=== PATIENT | female | born 1970 ===

== ENCOUNTER 2018-05-26 05:47 | Day surgery (SDC) | payer OTHER ==
[2018-05-25 10:19] VITALS: BMI 45.1
[2018-05-26] MEDS ORDERED: Lactated Ringer's 1,000 ML IV ONE (07:00)
[2018-05-26] MEDS ORDERED: Propofol 10 mg/ml Inj (20 ML) ONE (07:21)
[2018-05-26] MEDS ORDERED: ePHEDrine 50 mg/ml Inj ONE (07:21)
[2018-05-26] MEDS ORDERED: Phenylephrine 10 mg/ml Inj ONE (07:22)
[2018-05-26] MEDS ORDERED: Succinylcholine 200 mg/10 ml Inj IV ONE (07:22)
[2018-05-26] MEDS ORDERED: Midazolam 2 MG/2 ML VIAL ONE (07:22)
--- NOTE | 2018-05-26 07:38 | CP.SDSHP ---
Same Day Surgery H & P - History Proposed Procedure: DIALATATION AND CURETTAGE Pre-Op Diagnosis: POSTMENOPAUSAL BLEEDING - Allergies Allergies: Allergies latex Allergy (Verified 05/26/18 06:46) SWELLING Penicillins Allergy (Verified 05/26/18 06:46) RASH Tetanus Vaccines and Toxoid Allergy (Verified 05/26/18 06:46) RASH - Physical Exam General Appearance: NAD Vital Signs: Vital Signs 05/26/18 06:40 Pulse Rate 88 Mental Status: Alert & Oriented x3 Neuro: WNL Heart: WNL Lungs: WNL GI: WNL - {Optional Preform as Required} Breast: WNL Abdomen: Other Rectal: WNL Integument: WNL PIPE SMOKER MACHINE OPERATOR: WNL Ortho: WNL ENT: WNL Other Pertinent Findings: obese - Impression Impression: postmenopausal bleeding - Date & Time Date: 05/26/18 Time: 07:38 Short Stay Discharge - Short Stay Discharge Admitting Diagnosis/Reason for Visit: POST MENOPAUSAL BLEEDING Disposition: HOME/ ROUTINE Referrals: Jaiden Hannon MD [Primary Care Provider] -
[2018-05-26] MEDS ORDERED: Albuterol 0.083% Inhal Sol (2.5 mg/3 mL) UD ONE (08:22)
--- NOTE | 2018-05-26 08:29 | CP.SDSHP ---
Same Day Surgery H & P - Allergies Allergies: Allergies latex Allergy (Verified 05/26/18 06:46) SWELLING Penicillins Allergy (Verified 05/26/18 06:46) RASH Tetanus Vaccines and Toxoid Allergy (Verified 05/26/18 06:46) RASH - Physical Exam Vital Signs: Vital Signs 05/26/18 06:40 Pulse Rate 88 Short Stay Discharge - Short Stay Discharge Admitting Diagnosis/Reason for Visit: POST MENOPAUSAL BLEEDING Referrals: Jaiden Hannon MD [Primary Care Provider] - Follow-up: 2 weeks in office Additional Instructions (Diet, Activity): call if excessive bleeding , fever or infections Progress Note/Discharge Note with Instructions: tolerated procedure well no complications
[2018-05-26 08:56] VITALS: RESP 20
[2018-05-26 12:59] VITALS: O2SAT 97
[2018-05-26 13:02] VITALS: BP 114/50; PULSE 70; TEMP 97.3
--- NOTE | 2018-05-29 08:43 | OP ---
Copied To: Joelle Guillen MD Attending MD: Joelle Guillen MD PROCEDURE DATE: 05/26/2018 PREOPERATIVE DIAGNOSIS: Postmenopausal bleeding. POSTOPERATIVE DIAGNOSIS: Fractional dilatation and curettage was done, tissue obtained was suspicious for hyperplasia versus carcinoma of the endometrium. SURGEON: Joelle Guillen MD. ANESTHESIOLOGIST: Jes Dang MD. ANESTHESIA GIVEN: General anesthesia. COMPLICATIONS: None. DRAINS: None. PACKING: None. FLUIDS: Ringer Lactate at 150 mL an hour. CONDITION OF THE PATIENT: Stable. DESCRIPTION OF PROCEDURE: After proper workup, the patient was taken to the OR. She was prepped and draped under aseptic manner in usual lithotomy position. Initially, the urinary bladder was emptied by aseptic catheterization. On examination under anesthesia, uterus was anteverted, globular, six-week size. Adnexa was negative. A weighted speculum was then inserted inside the vagina. Cervix was exposed. Anterior lip of the cervix was held with single-tooth tenaculum. Initially, endocervical curettage with the Kevorkian curette was done. This was then found by cervicouterine axis, which was sounded to 10 cm. The cervix was then dilated with Hanks dilator up to #20. With #3 Adamson curette, sharp curettage of endometrial cavity was done, large amount of fleshy tissues were obtained. Complete curettage of the anterior wall, posterior wall, lateral wall, cornual and further portion of the uterus was completely curetted out. The estimated blood loss was about 30 mL. All the instruments were removed from the field. Instrument count and sponge count was counted as correct. The patient's vital signs being stable, she was then taken off the OR table, put on the recovery room bed and she was sent to the recovery room in good condition. Joelle Guillen MD
== END 2018-05-26 12:40 | disposition home or self-care (01) ==
LOC: H.OPSURG 05:47
PROVIDERS: ATTEND Obstetrics & Gynecology
DX: N95.0 Postmenopausal bleeding (principal); I10 Essential (primary) hypertension; Z88.0 Allergy status to penicillin
CPT/HCPCS: 58558; 88305; J0330; J2001; J2250; J2370; J2405; J2704; J3010; J7120